=== PATIENT | female | born 1995 | race Two or more races ===

== ENCOUNTER 2020-03-11 22:06 | Emergency (ER) | payer SELFPAY ==
[~2020-03-11] VITALS: Ht 162.6 cm; Wt 63.5 kg
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
[2020-03-11 22:18] VITALS: BP 118/70
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
[2020-03-11] MEDS ORDERED: Morphine Sulfate 4mg/ml Inj (IV USE ONLY) ONE (22:20)
--- NOTE | 2020-03-11 22:28 | NUR ---
ED Nurse Note: ERMD at pt bedside
[2020-03-11] MEDS ORDERED: Morphine Sulfate 4mg/ml Inj (IV USE ONLY) IVP ONE ×2 (22:30→22:45)
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
--- NOTE | 2020-03-11 23:00 | NUR ---
ED Nurse Note: pt becoming increasingly agressive toward staff, yelling and screaming, asking for more pain medications. two RNs at bedside using talk therapy and calming methods, pt cooperative for a couple of minutes, begins screaming again, stating she wants a ride to [email or web address]. will cont to monitor pt and wait for radiology results Addendum: 03/12/20 at 0016 by NICOLE NAFISA notified of pt's request for pain meds
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
--- NOTE | 2020-03-11 23:30 | NUR ---
ED Nurse Note: pt R hand and wrist placed in sugar tongue splint as ERMD ordered. pt yelling at staff during entire procedure, R arm casted and placed in arm sling. pt insisting on leaving, demanding medications, telephone and clothing from staff, agressively yelling at staff. unable to calm pt down Addendum: 03/12/20 at 0016 by NICOLE ERMD notified of patients persistent requests for px meds
[2020-03-11] MEDS ORDERED: HYDROCODON-ACE1 EA15 ORAL (23:36)
--- NOTE | 2020-03-11 23:45 | NUR ---
ED Nurse Note: pt provided with food,drink, and new clothes. pt face and hands cleaned of dried blood as much as was allowed by pt. pt demanding on leaving, verbally abusive and cursing at nursing staff and ERMD.
[2020-03-12] VITALS: BP 118/70
--- NOTE | 2020-03-12 | NUR ---
ER DISCHARGE NOTE: Patient is cleared to be discharged per ERMD, pt is aox4, on room air, with stable vital signs. pt was given dc and prescription instructions, pt was able to verbalize understanding, pt refused to sign paper work, continuing to be verbally abusive toward staff. pt id band and iv site removed. pt assisted to waiting room, showed telephone and how to make call from phone. pt left with all belongings.
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
== END 2020-03-12 | disposition home or self-care (01) ==
LOC: EDBD 22:06 → EMR 22:35
DX: S09.90XA Unspecified injury of head, initial encounter (principal); S01.01XA Laceration without foreign body of scalp, initial encounter; S62.244A Nondisplaced fracture of shaft of first metacarpal bone, right hand, initial encounter for closed fracture; F10.129 Alcohol abuse with intoxication, unspecified; F15.10 Other stimulant abuse, uncomplicated; Y04.2XXA Assault by strike against or bumped into by another person, initial encounter; Y92.9 Unspecified place or not applicable
CPT/HCPCS: 13132; 13133; 29125; 70450; 73130; 96374; 99284; J2270